=== PATIENT | female | born 1965 | race Two or more races ===

== ENCOUNTER 2019-08-13 04:49 | Day surgery (SDC) | payer OTHER ==
[2019-08-12 14:22] VITALS: BMI 35.5
[2019-08-13] MEDS ORDERED: BUPIVACAINE HCL/PF 0.5% (5 MG/ML) 30 ML VIAL IJ ONE ×2 (07:26→08:52)
[2019-08-13] MEDS ORDERED: DEXAMETHASONE SOD PHOSPHATE 4 MG/1 ML VIAL ONE (07:44)
[2019-08-13] MEDS ORDERED: ROCURONIUM BROMIDE 50 MG/5 ML SYRINGE ONE (07:44)
[2019-08-13] MEDS ORDERED: fentaNYL CITRATE 250 MCG/5 ML VIAL ONE (07:44)
[2019-08-13] MEDS ORDERED: PROPOFOL 20 ML ONE ×2 (07:44)
[2019-08-13] MEDS ORDERED: SUCCINYLCHOLINE CHLORIDE 200 MG/10 ML SYRINGE ONE (07:45)
[2019-08-13] MEDS ORDERED: MIDAZOLAM HCL 2 MG/2 ML SINGLE DOSE VIAL ONE (07:45)
--- NOTE | 2019-08-13 08:10 | HP ---
History & Physical Update - History History: No Change - Physical Physical: No Change - Assessment Assessment: No Change - Plan Plan: No Change
--- NOTE | 2019-08-13 08:28 | HP ---
Admitting History and Physical - Admission Chief Complaint: RUQ abdominal pain History of Present Illness: 54 y.o. female with history of chronic intermittent RUQ pain radiating to the back. US showed cholelithiasis with mildly dilated CBD. MRCP showed no choledocholithiasis. Pain intensity increased and becoming more frequent prompting patient to seek surgical management. History Source: Patient - Past Medical History ...LMP: 08/01/16 ...LMP Comment: POSTMENOPAUSAL ...: No Additional Past Medical History: obesity - Smoking History Smoking history: Never smoked - Alcohol/Substance Use Hx Alcohol Use: No Home Medications - Allergies Allergies/Adverse Reactions: Allergies Allergy/AdvReac Type Severity Reaction Status Date / Time No Known Allergies Allergy Verified 08/12/19 14:43 - Home Medications Home Medications: Ambulatory Orders Cyclobenzaprine HCl [Flexeril 10 mg] 10 mg PO PRN PRN 08/12/19 Zolpidem Tartrate [Ambien] 10 mg PO HS 08/12/19 Review of Systems - Review of Systems Constitutional: reports: No Symptoms Neck: reports: No Symptoms Respiratory: reports: No Symptoms Gastrointestinal: reports: Abdominal Pain (intermittent at RUQ) Genitourinary: reports: No Symptoms Integumentary: reports: No Symptoms Physical Examination Vital Signs: Vital Signs Temperature 98.0 F 08/13/19 06:27 Pulse Rate 98 H 08/13/19 06:27 Respiratory Rate 20 08/13/19 06:27 Blood Pressure 133/70 08/13/19 06:27 O2 Sat by Pulse Oximetry (%) 95 08/13/19 06:27 Constitutional: Yes: Obese Eyes: Yes: Conjunctiva Clear HENT: Yes: Normocephalic Neck: Yes: Supple Cardiovascular: Yes: Regular Rate and Rhythm Respiratory: Yes: CTA Bilaterally Gastrointestinal: Yes: Soft, Abdomen, Obese Extremities: Yes: WNL Edema: No Integumentary: Yes: WNL Neurological: Yes: Alert, Oriented Imaging - Results Ultrasound: Report Reviewed, Image Reviewed MRI: Report Reviewed, Image Reviewed Problem List - Problems (1) Chronic cholecystitis with calculus Assessment/Plan: Laparoscopic cholecystectomy, possible open Code(s): K80.10 - CALCULUS OF GALLBLADDER W CHRONIC CHOLECYST W/O OBSTRUCTION
[2019-08-13] MEDS ORDERED: ceFAZolin SODIUM 1 GM VIAL IVPB ONE (08:35)
[2019-08-13] MEDS ORDERED: ceFAZolin SODIUM 1 GM VIAL ONE (08:35)
[2019-08-13] MEDS ORDERED: ONDANSETRON 4 MG/2 ML VIAL IVPUSH PRN (08:41)
[2019-08-13] MEDS ORDERED: oxyCODONE HCL 5 MG TABLET PO PRN (08:41)
[2019-08-13] MEDS ORDERED: LACTATED RINGERS SOLUTION 1,000 ML IV SCH (08:45)
[2019-08-13] MEDS ORDERED: NEOSTIGMINE METHYLSULFATE 0.5 MG/ML - 10 ML MDV ONE (10:07)
--- NOTE | 2019-08-13 10:10 | OP ---
Operative Note - Note: Operative Date: 08/13/19 Pre-Operative Diagnosis: biliary colic, cholelithiasis Operation: Laproscopic cholecystectomy Post-Operative Diagnosis: Same as Pre-op Surgeon: Del Justin Endocrinology Specialist: Feng Carlton Anesthesia: General Estimated Blood Loss (mls): 30 Operative Report Dictated: Yes
--- NOTE | 2019-08-13 10:10 | SURG ---
Surgery Yarn Tester Note Yarn Tester: Feng Carlton PA-C Date of Service: 08/13/19 Diagnosis: biliary colic, cholelithiasis Procedure: laproscopic cholecystectomy I was present for the entirety of the operative procedure. For further detail, please refer to operative report. Visit type - Case Type Case Type: Scheduled - Emergency Emergency Visit: No - New patient This patient is new to me today: Yes Date on this admission: 08/13/19 - Critical Care Critical Care patient: No
[2019-08-13] MEDS ORDERED: HYDROmorphone HCL CARPU-JECT 2 MG/1 ML DISP.SYRIN IVPUSH ONE (12:30)
[2019-08-13] MEDS ORDERED: HYDROmorphone HCl 2 MG/ML VIAL ONE (12:32)
--- NOTE | 2019-08-13 12:46 | OP ---
DATE OF OPERATION: 08/13/2019 PROCEDURE: Laparoscopic cholecystectomy. PREOPERATIVE DIAGNOSIS: Chronic cholecystitis with cholelithiasis. POSTOPERATIVE DIAGNOSIS: Chronic cholecystitis with cholelithiasis. SURGEON: Del Justin MD MACHINE REPAIR PERSON: ALAN Sears ANESTHESIA: General endotracheal. FINDINGS AND PROCEDURE: This is a 54-year-old female who presents with chronic right upper quadrant pain radiating to the back aggravated with fatty meals. Two ultrasounds revealed gallbladder stones with a mildly dilated common duct. An MRCP revealed no choledocholithiasis. Patient was advised elective cholecystectomy; however, patient procrastinated until the pain was worse and attacks became more frequent. So patient was eventually scheduled for gallbladder removal, and consent was obtained after discussing the risks, benefits, and alternatives to the procedure. Patient was brought to the operating room and placed in supine position. General endotracheal anesthesia was administered. The abdomen was prepped and draped in the usual sterile fashion. Using 0.5% Marcaine, local anesthesia was administered to the proposed incision sites. The peritoneal cavity was entered using the Optiview technique via 5-mm umbilical incision using 5-mm, 0-degree scope inserted in a 5 -mm optical port. Pneumoperitoneum was established. The peritoneal cavity was inspected and noted to be free of inadvertent injury. The patient was placed in reverse Trendelenburg left side down position. The 12-mm port was inserted through the subxiphoid region, and two 5-mm ports were inserted at the right subcostal region at the midclavicular and mid axillary lines. The gallbladder fundus was noted to be severely distended with thickened wall and also floppy. The fundus was grasped close to liver bed and retracted anterior superiorly to expose the infundibulum and the hepatocystic triangle. The infundibulum was noted to contain a stone impacted in the neck which was grasped and dissected anterolaterally to expose the hepatocystic triangle. The cystic duct was identified and the visceral peritoneum covering the triangle was scored using the hook dissector connected to monopolar cautery on both sides toward the gallbladder bed. Critical view of safety was created behind the cystic artery and in between the gallbladder wall and the liver bed. The cystic duct was suspected to contain small stones, and this was milked using the [place] dissector from the cystic duct, common duct junction toward the gallbladder. Afterwards, the cystic duct was easily isolated and clipped at 3 points followed by transection leaving 3 clips at the cystic duct stump. The cystic artery was, likewise, clipped at 3 points followed by transection leaving 2 clips at the cystic artery stump. Gallbladder was then resected from its bed in antegrade fashion using the hook dissector connected to a monopolar cautery. When this was done, the gallbladder was placed in Endobag and extracted via the subxiphoid incision, which was lengthened to about 3 cm to accommodate a large gallbladder and large stone. The gallbladder was also initially opened and suctioned of its small stones and bile to aid in the retraction of the gallbladder. When this was done, the gallbladder bed was irrigated with sterile normal saline until return was clear. The pneumoperitoneum was evacuated, and the ports were removed. The wounds were closed with 1 [id number] Vicryl 0 suture for the fascia and the subxiphoid incision and subcuticular Biosyn 4-0 sutures for the skin. The wound closure was reinforced with Dermabond. The patient was successfully extubated and transferred to the post anesthesia care unit in satisfactory condition. Estimated blood loss was about 30 mL. Wound class clean, contaminated. The patient received 2 g of Ancef prior to the start of the procedure. Payton [id number] MTDD
[2019-08-13] MEDS ORDERED: HYDROmorphone HCl 2 MG/ML VIAL IVPUSH ONE (13:35)
[2019-08-13] MEDS ORDERED: oxyCODONE HCL 5 MG TABLET ONE (15:21)
[2019-08-13 16:49] VITALS: BP 106/70; PULSE 102; TEMP 97.9
--- NOTE | 2019-08-16 17:50 | PATH ---
Surgical Pathology Report Patient Name: KIMBERLY STAHL [facility]. Rec. #: [id number] /Age/Gender: 1965 (Age: 54) / F Account: [id number] Location: [facility] SURGICAL Taken: 08/13/2019 Received: 08/13/2019 Reported: 08/16/2019 Physicians: Del Justin M.D. Specimen(s) Received GALLBLADDER Clinical History Chronic cholecystitis and cholelithiasis Final Diagnosis GALLBLADDER, LAPAROSCOPIC CHOLECYSTECTOMY: ACUTE AND CHRONIC CHOLECYSTITIS WITH CHOLELITHIASIS. Electronically Signed Anai Acosta M.D. Gross Description Received in formalin, labeled "gallbladder," is a 11 x 4 x 2 cm. gallbladder with a 2 cm. in length portion of cystic duct attached. The outer surface is pink-brink, focally hemorrhagic and varies from smooth to shaggy. The lumen contains single black cholelith which measure 1.5 cm in greatest dimension. The mucosa is granular, hemorrhagic, and focally eroded. The wall of the gallbladder measures 0.3 cm. in thickness. Microfilm Operator sections are submitted in one cassette. MLSZ/08/13/2019 sanml/08/13/2019
== END 2019-08-13 16:53 | disposition home or self-care (01) ==
LOC: JASU-SURG 04:49
PROVIDERS: ATTEND Surgery
PROC: 0FT44ZZ Resection of Gallbladder, Percutaneous Endoscopic Approach (ICD-10-PCS; principal; 2019-08-13 08:00)
DX: K80.10 Calculus of gallbladder with chronic cholecystitis without obstruction (principal); R73.03 Prediabetes; E66.9 Obesity, unspecified
CPT/HCPCS: 88304-TC; 94760

== ENCOUNTER → 2022-10-24 | Day surgery (SDC) | payer OTHER | END | disposition home or self-care (01) | LOC: FMAMMOTONE 12:44 | PROVIDERS: ATTEND Family Medicine | PROC: 0HBT3ZX Excision of Right Breast, Percutaneous Approach, Diagnostic (ICD-10-PCS; principal; 2022-10-24) | DX: D05.11 Intraductal carcinoma in situ of right breast (principal); N64.89 Other specified disorders of breast; R92.0 Mammographic microcalcification found on diagnostic imaging of breast | CPT/HCPCS: 19081; 76098-TC-FY; 87899; 88305-TC; 88342-TC; A4648 ==

== ENCOUNTER → 2022-12-06 | Day surgery (SDC) | payer OTHER | END | disposition home or self-care (01) | LOC: JRADUS-SUR 09:30 | PROVIDERS: ATTEND Surgery Surgical Oncology | PROC: BH00ZZZ Plain Radiography of Right Breast (ICD-10-PCS; principal; 2022-12-06) | DX: D05.11 Intraductal carcinoma in situ of right breast (principal) | CPT/HCPCS: 19281; A4648 ==

== ENCOUNTER 2022-12-11 04:22 | Day surgery (SDC) | payer OTHER ==
[2022-12-10 12:51] VITALS: BMI 36.8
[2022-12-11] MEDS ORDERED: BENZOIN/ALOE VERA/STORAX/TOLU 58 ML BOTTLE ONE (07:23)
[2022-12-11] MEDS ORDERED: BUPIVACAINE HCL/PF 0.5% (5MG/ML) 10 ML VIAL ONE (07:23)
[2022-12-11] MEDS ORDERED: PROPOFOL 20 ML ONE (07:33)
[2022-12-11] MEDS ORDERED: MIDAZOLAM HCL 2 MG/2 ML SINGLE DOSE VIAL ONE (07:33)
[2022-12-11] MEDS ORDERED: GLYCOPYRROLATE 0.2 MG/1 ML VIAL ONE (07:35)
[2022-12-11] MEDS ORDERED: SODIUM CHLORIDE 0.9% P/F 10 ML VIAL IJ ONE (07:35)
[2022-12-11] MEDS ORDERED: LIDOCAINE HCL/PF 2% SDV 5ML VIAL ONE (07:35)
[2022-12-11] MEDS ORDERED: ceFAZolin SODIUM 1 GM VIAL ONE (07:35)
[2022-12-11] MEDS ORDERED: ceFAZolin SODIUM 1 GM VIAL IVPB ONE (07:52)
[2022-12-11] MEDS ORDERED: DEXAMETHASONE SOD PHOSPHATE 4 MG/1 ML VIAL ONE (08:01)
[2022-12-11] MEDS ORDERED: METOCLOPRAMIDE HCL INJECTION 10 MG/2 ML VIAL ONE (08:01)
[2022-12-11] MEDS ORDERED: ONDANSETRON 4 MG/2 ML VIAL ONE (08:01)
[2022-12-11] MEDS ORDERED: KETOROLAC TROMETHAMINE 30 MG/1 ML VIAL ONE (08:17)
[2022-12-11] MEDS ORDERED: BUPIVACAINE HCL/PF 0.5% (5MG/ML) 10 ML VIAL IJ ONE (08:42)
[2022-12-11] MEDS ORDERED: ONDANSETRON 4 MG/2 ML VIAL IVPUSH PRN (08:49)
[2022-12-11] MEDS ORDERED: oxyCODONE HCL 5 MG TABLET PO PRN (08:49)
[2022-12-11] MEDS ORDERED: PROMETHAZINE HCL 25 MG/1 ML VIAL IVPUSH PRN (08:49)
[2022-12-11] MEDS ORDERED: LACTATED RINGERS SOLUTION 1,000 ML IV SCH (09:00)
[2022-12-11 10:19] VITALS: PULSE 82; RESP 20
[2022-12-11] MEDS ORDERED: oxyCODONE HCL 5 MG TABLET ONE (11:03)
[2022-12-11 15:01] VITALS: BP 109/56; TEMP 97.4
== END 2022-12-11 13:00 | disposition home or self-care (01) ==
LOC: JASU-SURG 04:22
PROVIDERS: ATTEND Surgery Surgical Oncology
PROC: 0HBT0ZZ Excision of Right Breast, Open Approach (ICD-10-PCS; principal; 2022-12-11 07:30)
DX: D05.11 Intraductal carcinoma in situ of right breast (principal)
CPT/HCPCS: 36415; 76098-TC-FY; 82962; 84132; 88307-TC; 88341-TC; 88342-TC; 94760

== ENCOUNTER 2025-03-18 06:16 | Day surgery (SDC) | payer OTHER ==
[2025-03-15 14:01] VITALS: BMI 35.9
[2025-03-18 08:21] VITALS: RESP 18; TEMP 98
[2025-03-18 12:17] VITALS: BP 123/87; PULSE 69
== END 2025-03-18 12:18 | disposition home or self-care (01) ==
LOC: JASU-ENDO 06:16
PROVIDERS: ATTEND Student in an Organized Health Care Education/Training Program
PROC: 0DBN8ZX Excision of Sigmoid Colon, Via Natural or Artificial Opening Endoscopic, Diagnostic (ICD-10-PCS; principal; 2025-03-18 09:00)
DX: Z12.11 Encounter for screening for malignant neoplasm of colon (principal); K63.5 Polyp of colon; K64.8 Other hemorrhoids
CPT/HCPCS: 82962; 88305-TC